=== PATIENT | male | born 1965 | race Caucasian/White ===

== ENCOUNTER → 2017-01-27 | Outpatient (CLI) | payer BC ==
[~2017-01-27] MED LIST: GADAVIST IV PRN
--- NOTE | 2017-01-27 14:03 | DIAGNOSTIC IMAGING REPORT ---
ABDOMINAL MRI WITH AND WITHOUT INTRAVENOUS CONTRAST HISTORY: N28.1 Renal cyst TECHNIQUE: Multiplanar multisequence MRI of the abdomen was performed before and after the intravenous administration of contrast. COMPARISON STUDY: Outside hospital lumbar spine MRI 04/25/2015. FINDINGS: The liver, spleen, adrenal glands, pancreas, and gallbladder are unremarkable. No retroperitoneal lymphadenopathy. There is a 3 mm cyst within the interpolar region of the left kidney. There is a 6.8 x 5.6 cm T2 hyperintense, T1 hypointense nonenhancing exophytic lesion within the lower pole the right kidney. This is consistent with a cyst. No enhancing lesions within the kidneys. IMPRESSION: 1. A 6.8 x 5.6 cm right renal cyst. 2. A 3 mm left renal cyst. Electronically signed by: Aidan Cortez M.D. 01/27/2017 2:02 PM Dictated Date/Time: 01/27/2017 1:53 PM
== END | disposition home or self-care (01) ==
LOC: C.MRI 12:22
PROVIDERS: ATTEND Urology
DX: N28.1 Cyst of kidney, acquired (principal)